=== PATIENT | male | born 2000 | race Caucasian/White ===

== ENCOUNTER → 2021-12-11 07:32 | Outpatient (CLI) | payer OTHER, SELFPAY ==
--- NOTE | 2021-12-11 | DI.NM.S_ITS ---
PROCEDURE: NM EXERCISE TREADMILL NON NUC COMPARISON: None. INDICATIONS: Dizziness and giddiness FINDINGS: the patient exercised for 14 minutes and 27 seconds reaching 14.8METs, MOHINDER +8%. 90% of maximum predicted heart rate achieved. Appropriate BP response to exercise. No angina during the study. Patient did have dizziness and nausea at peak exercise that resolved during recovery. No ST changes and no ectopy during the study. IMPRESSION: Low risk, normal treadmill ECG only stress test with average exercise tolerance. Patient did have dizziness and nausea at peak exercise that resolved during recovery. Dictated by: Davon Medina MD on 12/11/2021 at 14:02 Approved by: Davon Medina MD on 12/11/2021 at 14:04
--- NOTE | 2021-12-11 | DI.ECHO.S_ITS ---
[facility]---------+ [facility] +---------+ : : [address] : [address] [place] : : : : [id number] : : : : Phone: [phone] +---------+ Echocardiogram Report + + :Name: MIKE HERNANDEZ Study Date: 12/11/2021 Height: 70 in : :[facility] ReadingLocation: Weight: 150 lb : : Gender: Male BSA: 1.8 m2 : :: 2000 Age: 21 yrs BP: 124/72 mmHg: :Reason For Study: Dizziness : :Ordering Physician: MK, : :BERNARDO Performed By: Xavier Doherty : :Referring: BERNARDO MEDINA : + + Interpretation Summary 1) Normal left ventricular thickness, size, wall motion, and systolic function (EF 55-60%). 2) Normal right ventricular size and function. 3) No significant valvular abnormalities. 4) No prior Echo available for comparison. Procedure: A two-dimensional transthoracic echocardiogram with color flow and Doppler was performed. The study quality was technically adequate. There is no prior echocardiogram noted for this patient. The patient was in normal sinus rhythm during the exam. Left Ventricle: The left ventricle is normal in size and wall thickness. Left ventricular systolic function is normal. The ejection fraction is estimated to be 55-60%. There are no focal wall motion abnormalities. Diastolic parameters suggest probable normal left ventricular diastolic function and normal filling pressures. Right Ventricle: The right ventricle is normal in size and function. Atria: Both atria are normal in size. The interatrial septum grossly appears intact with no obvious evidence for an atrial septal defect. Mitral Valve: The mitral valve is normal in structure and function. There is trace mitral regurgitation. Aortic Valve: The aortic valve is normal in structure and function. There is no aortic valve stenosis. No aortic regurgitation is present. Tricuspid Valve: The tricuspid valve is normal in structure and function. There is trace tricuspid regurgitation. Pulmonary artery pressures cannot be estimated because of the lack of a measurable TR jet velocity. Pulmonic Valve: The pulmonic valve is normal in structure and function. There is a trace or physiologic amount of pulmonic regurgitation. Great Vessels: The aortic root is normal size. The dimensions of the ascending aorta are normal. The IVC is of normal diameter and collapses greater than 50% with a sniff. This suggests a low right atrial pressure of 3 mm Hg. Pericardium/ Pleura There is no pericardial effusion. There is no pleural effusion. MMode/2D Measurements & Calculations LVIDd: 5.2 cm LVOT diam: 1.8 cm LVIDs: 3.5 cm Ao root diam: 2.8 cm FS: 32.7 % asc Aorta Diam: 2.6 cm IVSd: 0.80 cm LVPWd: 0.90 cm LV marie. diameter/BSA (cm/m^2): 2.8 LV sys. diameter/BSA (cm/m^2): 1.9 LA dimension: 2.8 cm RA long axis: 4.2 cm LA A2 area: 16.3 cm2 LA A4 area: 17.7 cm2 LA length (vol): 4.9 cm LA vol: 49.9 ml LA vol index: 27.0 ml/m2 TAPSE_phl: 2.1 cm Doppler Measurements & Calculations Ao V2 max: 172.0 cm/sec LVOT Max Maximus: 138.0 cm/sec Ao V2 mean: 117.0 cm/sec LV V1 max P.6 mmHg Ao max P.0 mmHg LV V1 VTI: 27.1 cm Ao mean P.0 mmHg SHAHEED(I,D): 2.1 cm2 Ao V2 VTI: 32.9 cm SHAHEED(V,D): 2.0 cm2 sev ratio: 0.82 SHAHEED indexed to BSA (cm^2/m^2): 1.1 MV E max maximus: 101.0 cm/sec SV(LVOT): 69.0 ml MV A max maximus: 58.3 cm/sec MV E/A: 1.7 Med Peak E' Maximus: 13.2 cm/sec E/E' med: 7.7 Lat Peak E' Maximus: 19.6 cm/sec E/E' lat: 5.2 E/e' average: 6.4 MV dec time: 0.21 sec AV VR_phl: 0.80 MV P1/2t-pr_phl: 61.0 msec SHAHEED(VTI)/BSA_phl: 1.1 Reading Physician:10:11 AM
[2021-12-11 08:43] LABS: COVID19 -Nasal RAPID Negative (Negative)
== END ==
PROVIDERS: Referring Provider Internal Medicine Cardiovascular Disease; Visit Provider Internal Medicine Cardiovascular Disease
DX: R42 Dizziness and giddiness (principal); Z20.822 Contact with and (suspected) exposure to COVID-19; R11.0 Nausea
CPT/HCPCS: 87635; 93017; 93306

== ENCOUNTER → 2022-10-01 15:54 | Outpatient (CLI) | payer OTHER, SELFPAY ==
--- NOTE | 2022-10-01 15:56 | DI.ECHO.S_ITS ---
[facility]---------+ [facility] +---------+ : : [address] : [place] : : : : [id number] : : : : Phone: [phone] +---------+ Echocardiogram Report + + :Name: MIKE HERNANDEZ Study Date: 10/01/2022 Height: 71 in : :[facility] ReadingLocation: Weight: 150 lb : : Gender: Male BSA: 1.9 m2 : :: 2000 Age: 22 yrs BP: 127/82 mmHg: :Reason For Study: Bradycardia : :Ordering Physician: HIEU, : :ERIN Performed By: Em Rodriguez : :Referring: ERIN HAGEN : + + Interpretation Summary Normal echo study. Comparison is made with the echocardiogram of 12/11/2021, there has been no significant chnage. Procedure: A two-dimensional transthoracic echocardiogram with color flow and Doppler was performed. The study quality was technically adequate. Comparison is made with the echocardiogram of 12/11/2021. The patient was in a bradycardic rhythm during the exam. Left Ventricle: The left ventricle appears normal in size, wall thickness, and systolic function without any focal wall motion abnormalities. The ejection fraction is estimated to be 60-65%. Diastolic parameters suggest probable normal left ventricular diastolic function and normal filling pressures. Right Ventricle: The right ventricle is normal in size and function. Atria: The left atrial size is normal. Right atrial size is normal. There is no Doppler evidence for an interatrial shunt. Mitral Valve: The mitral valve is normal. There is no mitral valve stenosis. There is trace mitral regurgitation. Aortic Valve: The aortic valve is trileaflet. The aortic valve opens well. There is no aortic valve stenosis. No aortic regurgitation is present. Tricuspid Valve: The tricuspid valve is normal. There is no tricuspid stenosis. There is trace tricuspid regurgitation. The right ventricular systolic pressure is estimated to be at least 33 mmHg based on an estimated right atrial pressure of 3 mm Hg. Pulmonic Valve: The pulmonic valve leaflets are thin and pliable; valve motion is normal. There is no pulmonic valvular stenosis. There is mild pulmonic regurgitation. Great Vessels: The aortic root is normal size. The ascending aorta is normal in size. The pulmonary artery is normal size. The IVC is dilated (diameter is greater than 2.1 cm) and it collapses less than 50% with a sniff. This suggests a high right atrial pressure of 15 mm Hg. Pericardium/ Pleura There is no pericardial effusion. MMode/2D Measurements & Calculations LVIDd: 5.1 cm LVOT diam: 2.0 cm LVIDs: 3.4 cm Ao root diam: 2.9 cm FS: 33.3 % asc Aorta Diam: 2.6 cm IVSd: 0.90 cm LVPWd: 0.90 cm LV marie. diameter/BSA (cm/m^2): 2.7 LV sys. diameter/BSA (cm/m^2): 1.8 LA A2 area: 12.7 cm2 RA long axis: 4.3 cm LA A4 area: 13.5 cm2 RA area: 12.4 cm2 LA length (vol): 4.5 cm RA vol: 30.5 ml LA vol: 32.3 ml RA : 16.3 ml/m2 LA vol index: 17.3 ml/m2 IVC diam: 2.1 cm RVD1 (basal): 3.6 cm LVLs ap4: 6.1 cm LVLd ap2: 8.2 cm TAPSE_phl: 1.9 cm LVLs ap2: 6.1 cm Doppler Measurements & Calculations Ao V2 max: 147.0 cm/sec LVOT Max Maximus: 149.0 cm/sec Ao V2 mean: 108.0 cm/sec LV V1 max P.9 mmHg Ao max P.0 mmHg LV V1 VTI: 29.4 cm Ao mean P.0 mmHg SHAHEED(I,D): 2.7 cm2 Ao V2 VTI: 33.9 cm SHAHEED(V,D): 3.2 cm2 sev ratio: 0.87 SHAHEED indexed to BSA (cm^2/m^2): 1.5 MV E max maximus: 84.8 cm/sec TR max maximus: 216.0 cm/sec MV A max maximus: 30.7 cm/sec TR max P.7 mmHg MV E/A: 2.8 PA V2 max: 106.0 cm/sec Med Peak E' Maximus: 13.2 cm/sec PA V2 mean: 75.1 cm/sec E/E' med: 6.4 PA mean P.0 mmHg Lat Peak E' Maximus: 19.4 cm/sec PA pr(Accel): 17.3 mmHg E/E' lat: 4.4 E/e' average: 5.4 MV dec time: 0.27 sec SV(LVOT): 92.4 ml AV VR_phl: 1.0 SHAHEED(VTI)/BSA_phl: 1.4 MV P1/2t-pr_phl: 79.0 msec Electronically signed by: Jeffrey Cohen on Reading Physician:10/01/2022 09:29 PM
== END ==
PROVIDERS: Referring Provider Chiropractor; Visit Provider Chiropractor
DX: R00.1 Bradycardia, unspecified (principal); I37.1 Nonrheumatic pulmonary valve insufficiency
CPT/HCPCS: 93306

== ENCOUNTER → 2022-10-22 07:34 | Outpatient (CLI) | payer OTHER, SELFPAY ==
--- NOTE | 2022-10-22 07:38 | DI.RAD.S_ITS ---
PROCEDURE: XR ANKLE LT MIN 3V INDICATIONS: polyarthritis TECHNIQUE: 3 views of the ankle were acquired. COMPARISON: None. FINDINGS: Bones: No fractures or dislocations. Ankle mortise is normally aligned. No suspicious bony lesions. Soft tissues: No tibiotalar joint effusion. Achilles tendon appears normal. IMPRESSION: Unremarkable left ankle radiographs Approved by: Kevin Shukla M.D. on 10/22/2022 at 10:34
--- NOTE | 2022-10-22 07:38 | DI.RAD.S_ITS ---
PROCEDURE: XR SHOULDER LT MIN 2V INDICATIONS: polyarthritis TECHNIQUE: 3 views of the shoulder were acquired. COMPARISON: None. FINDINGS: Bones: No fractures or dislocations. No suspicious bony lesions. Visualized ribs appear intact. Soft tissues: No suspicious soft tissue calcifications. IMPRESSION: Normal cervical spine radiographs Approved by: Kevin Shukla M.D. on 10/22/2022 at 10:35
--- NOTE | 2022-10-22 07:38 | DI.RAD.S_ITS ---
PROCEDURE: XR ELBOW RT MIN 3V INDICATIONS: polyarthritis TECHNIQUE: 3 views of the elbow were acquired. COMPARISON: None. FINDINGS: Bones: No fractures or dislocations. No suspicious bony lesions. Soft tissues: No elbow joint effusion. No suspicious soft tissue calcifications. IMPRESSION: No erosions or periarticular osteophytes. Dictated by: Radha Alvarez M.D. on 10/22/2022 at 17:00 Approved by: Radha Alvarez M.D. on 10/22/2022 at 17:00
--- NOTE | 2022-10-22 07:38 | DI.RAD.S_ITS ---
PROCEDURE: XR KNEE RT 3V INDICATIONS: polyarthritis TECHNIQUE: 3 views of the knee were acquired. COMPARISON: None. FINDINGS: Bones: No fractures or dislocations. No suspicious bony lesions. No erosions. Soft tissues: Moderate joint effusion. No suspicious soft tissue calcifications. IMPRESSION: Moderate effusion. Dictated by: Radha Alvarez M.D. on 10/22/2022 at 17:01 Approved by: Radha Alvarez M.D. on 10/22/2022 at 17:02
--- NOTE | 2022-10-22 07:38 | DI.RAD.S_ITS ---
PROCEDURE: XR SHOULDER RT MIN 2V INDICATIONS: polyarthritis TECHNIQUE: 3 views of the shoulder were acquired. COMPARISON: None. FINDINGS: Bones: No fractures or dislocations. No suspicious bony lesions. Visualized ribs appear intact. Soft tissues: No suspicious soft tissue calcifications. IMPRESSION: Normal right shoulder radiographs Approved by: Kevin Shukla M.D. on 10/22/2022 at 10:36
--- NOTE | 2022-10-22 07:38 | DI.RAD.S_ITS ---
PROCEDURE: XR CERVICAL SPINE 2V OR 3V INDICATIONS: polyarthritis TECHNIQUE: 3 view(s) of the cervical spine were acquired. COMPARISON: None. FINDINGS: Bones: No fractures or dislocations to the T3 level. The lateral masses of C1 appear intact on the odontoid view. No suspicious bony lesions. Soft tissues: No prevertebral soft tissue swelling. IMPRESSION: Cervical spine Approved by: Kevin Shukla M.D. on 10/22/2022 at 10:34
--- NOTE | 2022-10-22 07:38 | DI.RAD.S_ITS ---
PROCEDURE: XR ELBOW LT MIN 3V INDICATIONS: polyarthritis, carotid artery syndrome TECHNIQUE: 3 views of the elbow were acquired. COMPARISON: None. FINDINGS: Bones: No fractures or dislocations. No suspicious bony lesions. Soft tissues: No elbow joint effusion. No suspicious soft tissue calcifications. IMPRESSION: Unremarkable exam. Dictated by: Radha Alvarez M.D. on 10/22/2022 at 16:59 Approved by: Radha Alvarez M.D. on 10/22/2022 at 17:00
--- NOTE | 2022-10-22 07:38 | DI.RAD.S_ITS ---
PROCEDURE: XR KNEE LT 3V INDICATIONS: polyarthritis TECHNIQUE: 3 views of the knee were acquired. COMPARISON: None. FINDINGS: Bones: No fractures or dislocations. No suspicious bony lesions. No erosions. Soft tissues: Moderate joint effusion. No suspicious soft tissue calcifications. IMPRESSION: Moderate effusion. Dictated by: Radha Alvarez M.D. on 10/22/2022 at 17:01 Approved by: Radha Alvarez M.D. on 10/22/2022 at 17:01
== END ==
PROVIDERS: Referring Provider Chiropractor; Visit Provider Chiropractor
DX: G45.1 Carotid artery syndrome (hemispheric); M13.80 Other specified arthritis, unspecified site; M25.462 Effusion, left knee; M25.461 Effusion, right knee
CPT/HCPCS: 72040; 73030; 73080; 73562; 73610; 93005; 93010